=== PATIENT | male | born 1945 | race African-American/Black ===

== ENCOUNTER 2018-03-27 11:44 | Emergency (ER) | payer OTHER, MEDICAID ==
[~2018-03-27] VITALS: Ht 177.8 cm; Wt 106.0 kg
[~2018-03-27 11:44] MED LIST: ACET-3161 PO; AMLO10TA4 PO; ASPI-1159 PO; METH4TAB3 PO; OMEP20CA4 PO; OXYB5TAB11 PO; PREG150C PO; TAMS0.4C31 PO
[2018-03-27] MEDS ORDERED: ACETAMINOPHEN WITH CODEINE 300/30MG TABLET PO ONE (14:45)
[2018-03-27 16:42] VITALS: BP 133/85
== END 2018-03-27 17:07 | disposition home or self-care (01) ==
LOC: ER 11:44
DX: S00.83XA Contusion of other part of head, initial encounter (principal); S00.93XA Contusion of unspecified part of head, initial encounter; M25.511 Pain in right shoulder; M79.641 Pain in right hand; R51 Headache; R20.0 Anesthesia of skin; I10 Essential (primary) hypertension; W01.198A Fall on same level from slipping, tripping and stumbling with subsequent striking against other object, initial encounter; Y93.89 Activity, other specified; Y92.89 Other specified places as the place of occurrence of the external cause; E11.9 Type 2 diabetes mellitus without complications; E78.00 Pure hypercholesterolemia, unspecified; Z86.73 Personal history of transient ischemic attack (TIA), and cerebral infarction without residual deficits; Z88.0 Allergy status to penicillin; Z87.891 Personal history of nicotine dependence; Z79.82 Long term (current) use of aspirin; Z79.899 Other long term (current) drug therapy
CPT/HCPCS: 70450; 73030; 73130; 99284

== ENCOUNTER 2018-08-13 09:37 | Inpatient (IN) | payer OTHER, MEDICAID ==
[~2018-08-13] VITALS: Ht 177.8 cm; Wt 104.3 kg
[2018-08-13 11:15] LABS: BASOPHILS % 0.9 % (0.0-2.0); EOSINOPHILS % 0.7 % (0.0-5.0); HEMATOCRIT. 43.3 % (42.0-52.0); HEMOGLOBIN. 14.2 g/dL (14.0-18.0); LYMPHOCYTES % 16.5 % (20.0-50.0); MEAN CORPUSCULAR HEMOGLOBIN 27.7 pg (28.0-32.0); MEAN CORPUSCULAR VOLUME 84.7 fL (80.0-94.0); MEAN PLATELET VOLUME 8.2 fl (7.4-10.4); MONOCYTES % 5.4 % (2.0-8.0); NEUTROPHILS % 76.5 % (40.0-76.0); PLATELET 331 x1000/uL (130-400); RED BLOOD CELL COUNT 5.12 mill/uL (4.7-6.1); RED CELL DISTRIBUTION WIDTH 15.1 % (11.6-14.6)
[2018-08-13 11:23] LABS: CHLORIDE 108 mEq/L (98-107)
[2018-08-13 16:00] VITALS: BP 166/92
[2018-08-13 16:02] VITALS: BP 166/92
[2018-08-13] MEDS ORDERED: GABA-290 MT (16:28)
[2018-08-13] MEDS ORDERED: TOPI25CA2 MT (16:30)
[2018-08-13] MEDS ORDERED: CLOP75TA16 MT (16:32)
[2018-08-13] MEDS ORDERED: TRAM50TA3 MT (16:32)
[2018-08-13] MEDS ORDERED: MEMA1CAP3 MT (16:32)
[2018-08-13] MEDS ORDERED: PREG200C MT (16:32)
[2018-08-13] MEDS ORDERED: BACL-141 MT (16:32)
[2018-08-13] MEDS ORDERED: IPRATROPIUM/ALBUTEROL 0.5-3(2.5)MG/3ML NEB INH PRN (16:45)
[2018-08-13] MEDS ORDERED: ACETAMINOPHEN 325MG TABLET PO PRN (16:45)
[2018-08-13] MEDS ORDERED: DOCUSATE SODIUM 100MG CAPSULE PO PRN (17:00)
[2018-08-13] MEDS ORDERED: DEXTROSE 50% WATER 50ML SYRINGE IV PRN (17:15)
[2018-08-13] MEDS: BLOOD SUGAR DIAGNOSTIC STRIP TEST SCH ×2 (17:20→20:15)
[2018-08-13] MEDS: INSULIN LISPRO 100 UNITS/ML SUBCUT SCH ×2 (17:43→20:14)
[2018-08-13] MEDS: CLOPIDOGREL 75MG TABLET PO SCH (17:55)
[2018-08-13] MEDS: AMLODIPINE 10MG TABLET PO SCH (17:55)
[2018-08-13] MEDS: ASPIRIN 81MG EC TABLET PO SCH (17:56)
[2018-08-13] MEDS ORDERED: PNEUMOCOCCAL 23-VAL P-SAC VAC 0.5 ML IM ONE (18:15)
[2018-08-13] MEDS ORDERED: BISACODYL 5MG TABLET PO PRN (19:15)
[2018-08-13 20:00] VITALS: BP 157/94
[2018-08-13] MEDS: FUROSEMIDE 40MG/4ML VIAL IVP SCH (20:12)
[2018-08-13] MEDS: CARVEDILOL 6.25 MG TABLET PO SCH (20:13)
[2018-08-13] MEDS: HYDRALAZINE HCL 50MG TABLET PO SCH (20:13)
[2018-08-13] MEDS: TOPIRAMATE 25MG TABLET PO SCH (20:13)
[2018-08-13] MEDS: ENOXAPARIN 30MG/0.3ML SYR SUBCUT SCH (20:15)
[2018-08-13] MEDS ORDERED: INFLUENZA VIRUS VACCINE 0.5ML SYR IM ONE (21:00)
[2018-08-13] MEDS: GABAPENTIN 300MG CAPSULE PO SCH (21:21)
[2018-08-13] MEDS: SODIUM CHLORIDE 0.9% INJ 3ML FLUSH IVF SCH (21:22)
[2018-08-14 00:18] VITALS: BP 127/84
[2018-08-14 04:00] VITALS: BP 126/70
[2018-08-14] MEDS: GABAPENTIN 300MG CAPSULE PO SCH ×3 (06:07→21:21)
[2018-08-14] MEDS: SODIUM CHLORIDE 0.9% INJ 3ML FLUSH IVF SCH ×3 (06:08→21:22)
[2018-08-14] MEDS: BLOOD SUGAR DIAGNOSTIC STRIP TEST SCH ×4 (06:46→21:22)
[2018-08-14 06:56] LABS: BASOPHILS % 0.6 % (0.0-2.0); EOSINOPHILS % 1.5 % (0.0-5.0); HEMATOCRIT. 42.2 % (42.0-52.0); HEMOGLOBIN. 14.1 g/dL (14.0-18.0); LYMPHOCYTES % 17.5 % (20.0-50.0); MEAN CORPUSCULAR HEMOGLOBIN 28.2 pg (28.0-32.0); MEAN CORPUSCULAR VOLUME 84.2 fL (80.0-94.0); MEAN PLATELET VOLUME 8.6 fl (7.4-10.4); MONOCYTES % 5.9 % (2.0-8.0); NEUTROPHILS % 74.5 % (40.0-76.0); PLATELET 359 x1000/uL (130-400); RED BLOOD CELL COUNT 5.01 mill/uL (4.7-6.1); RED CELL DISTRIBUTION WIDTH 14.9 % (11.6-14.6)
[2018-08-14 07:08] LABS: CHLORIDE 104 mEq/L (98-107)
[2018-08-14 07:14] LABS: LDL CHOLESTEROL 83 mg/dL (5-100)
[2018-08-14 07:16] LABS: HDL CHOLESTEROL 52 mg/dL (40-59)
[2018-08-14] MEDS: INSULIN LISPRO 100 UNITS/ML SUBCUT SCH ×4 (07:50→21:00)
[2018-08-14 08:00] VITALS: BP 153/85
[2018-08-14] MEDS: FUROSEMIDE 40MG/4ML VIAL IVP SCH (08:53)
[2018-08-14] MEDS: AMLODIPINE 10MG TABLET PO SCH (09:12)
[2018-08-14] MEDS: CLOPIDOGREL 75MG TABLET PO SCH (09:12)
[2018-08-14] MEDS: CARVEDILOL 6.25 MG TABLET PO SCH ×2 (09:13→21:21)
[2018-08-14] MEDS: OMEPRAZOLE 20MG CAPSULE EXTENDED RELEASE PO SCH (09:13)
[2018-08-14] MEDS: ASPIRIN 81MG EC TABLET PO SCH (09:13)
[2018-08-14] MEDS: TOPIRAMATE 25MG TABLET PO SCH ×2 (09:13→21:21)
[2018-08-14] MEDS: ENOXAPARIN 30MG/0.3ML SYR SUBCUT SCH ×2 (09:14→21:22)
[2018-08-14] MEDS: HYDRALAZINE HCL 50MG TABLET PO SCH ×2 (09:15→21:22)
[2018-08-14 12:00] VITALS: BP 133/78
[2018-08-14 16:00] VITALS: BP 128/77
[2018-08-14] MEDS ORDERED: POTASSIUM CHLORIDE 20MEQ TABLET SR PO NR (18:30)
[2018-08-14 20:00] VITALS: BP 139/81
[2018-08-15] VITALS: BP 127/65
[2018-08-15 04:00] VITALS: BP 117/76
[2018-08-15] MEDS: GABAPENTIN 300MG CAPSULE PO SCH ×2 (06:13→14:08)
[2018-08-15] MEDS: BLOOD SUGAR DIAGNOSTIC STRIP TEST SCH ×2 (06:14→12:23)
[2018-08-15] MEDS: SODIUM CHLORIDE 0.9% INJ 3ML FLUSH IVF SCH ×2 (06:14→14:05)
[2018-08-15] MEDS: INSULIN LISPRO 100 UNITS/ML SUBCUT SCH ×2 (07:02→12:23)
[2018-08-15 07:08] LABS: CHLORIDE 103 mEq/L (98-107)
[2018-08-15 08:35] VITALS: BP 118/75
[2018-08-15] MEDS: TOPIRAMATE 25MG TABLET PO SCH (08:36)
[2018-08-15] MEDS: FUROSEMIDE 40MG/4ML VIAL IVP SCH (08:36)
[2018-08-15] MEDS: CLOPIDOGREL 75MG TABLET PO SCH (08:36)
[2018-08-15] MEDS: OMEPRAZOLE 20MG CAPSULE EXTENDED RELEASE PO SCH (08:37)
[2018-08-15] MEDS: CARVEDILOL 6.25 MG TABLET PO SCH (08:37)
[2018-08-15] MEDS: ASPIRIN 81MG EC TABLET PO SCH (08:37)
[2018-08-15] MEDS: AMLODIPINE 10MG TABLET PO SCH (08:37)
[2018-08-15] MEDS: HYDRALAZINE HCL 50MG TABLET PO SCH (08:38)
[2018-08-15] MEDS: ENOXAPARIN 30MG/0.3ML SYR SUBCUT SCH (08:38)
[2018-08-15 12:50] VITALS: BP 106/64
[2018-08-15 15:47] VITALS: BP 106/64
[2018-08-15 16:31] VITALS: BP 133/70
== END 2018-08-15 17:11 | disposition home or self-care (01) | DRG 291 ==
LOC: ER 11:08 → 6WST 11:47 → EDBEDREQTM 11:58 → EDBEDREQ 11:58 → ENRESERV 12:59
PROVIDERS: ADMIT Internal Medicine; ATTEND Internal Medicine
DX: I13.0 Hypertensive heart and chronic kidney disease with heart failure and stage 1 through stage 4 chronic kidney disease, or unspecified chronic kidney disease (principal); I50.43 Acute on chronic combined systolic (congestive) and diastolic (congestive) heart failure; I69.351 Hemiplegia and hemiparesis following cerebral infarction affecting right dominant side; I69.354 Hemiplegia and hemiparesis following cerebral infarction affecting left non-dominant side; E78.5 Hyperlipidemia, unspecified; E66.9 Obesity, unspecified; F03.90 Unspecified dementia, unspecified severity, without behavioral disturbance, psychotic disturbance, mood disturbance, and anxiety; N18.9 Chronic kidney disease, unspecified; N40.0 Benign prostatic hyperplasia without lower urinary tract symptoms; Z79.899 Other long term (current) drug therapy; Z88.0 Allergy status to penicillin; Z68.33 Body mass index [BMI] 33.0-33.9, adult
CPT/HCPCS: 36415; 71045; 80048; 80053; 80061; 82962; 83036; 83880; 84484; 85025; 90686; 90732; 93005; 93306; 93880; 97162; 99285; J1650; J1940